=== PATIENT | male | born 1950 | race Two or more races ===

== ENCOUNTER 2017-07-20 07:32 | Day surgery (SDC) | payer OTHER ==
[~2017-07-20] VITALS: Ht 177.8 cm; Wt 115.5 kg
[~2017-07-20 07:32] MED LIST: ATOR40TA PO; CYAN1000I PO; ELIQUIS5 MG PO; FISH OIL 1,2001 EAC1 PO; LEVO-T150 MCG PO; METO25 PO; OSTERA TABLET1 EACH PO; Omeprazole20 M1; SYNTHROID175 MCG PO; Toprol Xl25 MG PO
== END 2017-07-20 23:02 | disposition home or self-care (01) ==
LOC: MHTC 07:32
PROC: 0JH602Z Insertion of Monitoring Device into Chest Subcutaneous Tissue and Fascia, Open Approach (ICD-10-PCS; principal; 2017-07-20)
DX: I48.3 Typical atrial flutter (principal); I10 Essential (primary) hypertension; E78.5 Hyperlipidemia, unspecified; E03.9 Hypothyroidism, unspecified; E66.01 Morbid (severe) obesity due to excess calories; Z87.891 Personal history of nicotine dependence
CPT/HCPCS: 33282; C1764

== ENCOUNTER 2021-04-24 09:16 | Day surgery (SDC) | payer OTHER ==
[~2021-04-24] VITALS: Ht 175.3 cm; Wt 113.2 kg
[2021-04-24] MEDS ORDERED: ASPI81CH PO (09:38)
[2021-04-24] MEDS ORDERED: Cabergoline0.5 MG PO (09:38)
[2021-04-24] MEDS ORDERED: METO50 PO (09:39)
--- NOTE | 2021-04-24 10:00 | NUR ---
Ambulatory in Day Surgery History, Chart, Medications and Allergies reviewed before start of procedure.Pre-Op teaching done. Pt verbalizes understanding.
--- NOTE | 2021-04-24 11:14 | NUR ---
04/24/21 1114 Billie Wheeler History, Chart, Medications and Allergies reviewed before start of procedure. Patient confirms NPO status and agrees with scheduled surgery. 3-LEAD EKG REVIEWED WITH PHYSICIAN PRIOR TO START OF PROCEDURE. MONITOR INTACT WITH CONTINUOUS PULSE OXIMETRY AND INTERMITTENT BP. PATIENT DETERMINED TO BE ASA APPROPRIATE FOR PROPOFOL SEDATION PRIOR TO START OF PROCEDURE BY DR. ABARCA
--- NOTE | 2021-04-24 11:59 | NUR ---
Patient up to Ambulate independently. Gait steady. Discharge instructions reviewed with patient. Patient verbalizes understanding. Copy given to patient to take home. Discharged via wheelchair to private car for ride home.
== END 2021-04-24 22:51 | disposition home or self-care (01) ==
LOC: ORSCMMR 09:16 → ORD 10:45 → ORSCMMR 10:45
DX: Z12.11 Encounter for screening for malignant neoplasm of colon (principal); D12.2 Benign neoplasm of ascending colon; K63.5 Polyp of colon; E78.5 Hyperlipidemia, unspecified; E03.9 Hypothyroidism, unspecified; E66.9 Obesity, unspecified; Z68.38 Body mass index [BMI] 38.0-38.9, adult; Z79.82 Long term (current) use of aspirin; Z79.899 Other long term (current) drug therapy
CPT/HCPCS: 88305; J2704; J7120

== ENCOUNTER 2021-07-10 06:42 | Day surgery (SDC) | payer OTHER ==
[~2021-07-10 06:42] MED LIST changes: +ASPI81CH PO; +Cabergoline0.5 MG PO; +METO50 PO
== END 2021-07-11 12:00 | disposition home or self-care (01) ==
LOC: MHTC 06:42
DX: Z45.09 Encounter for adjustment and management of other cardiac device (principal); I48.0 Paroxysmal atrial fibrillation; R55 Syncope and collapse; I10 Essential (primary) hypertension; E78.5 Hyperlipidemia, unspecified; E03.9 Hypothyroidism, unspecified; E66.9 Obesity, unspecified; I77.819 Aortic ectasia, unspecified site; D35.2 Benign neoplasm of pituitary gland; E55.9 Vitamin D deficiency, unspecified; K21.9 Gastro-esophageal reflux disease without esophagitis; G47.33 Obstructive sleep apnea (adult) (pediatric); Z86.79 Personal history of other diseases of the circulatory system; Z79.82 Long term (current) use of aspirin; Z87.891 Personal history of nicotine dependence; Z68.37 Body mass index [BMI] 37.0-37.9, adult
CPT/HCPCS: 33286

== ENCOUNTER 2022-04-30 08:39 | Day surgery (SDC) | payer OTHER ==
[~2022-04-30] VITALS: Ht 177.8 cm; Wt 117.8 kg
== END 2022-04-30 10:31 | disposition home or self-care (01) ==
LOC: ORSCSDS 08:39
PROVIDERS: Ophthalmology
PROC: 08DJ3ZZ Extraction of Right Lens, Percutaneous Approach (ICD-10-PCS; principal; 2022-04-30 10:00)
DX: H25.11 Age-related nuclear cataract, right eye (principal); Z96.1 Presence of intraocular lens; I10 Essential (primary) hypertension; I65.29 Occlusion and stenosis of unspecified carotid artery; I48.0 Paroxysmal atrial fibrillation; Z87.891 Personal history of nicotine dependence; G47.33 Obstructive sleep apnea (adult) (pediatric); E66.9 Obesity, unspecified; Z68.37 Body mass index [BMI] 37.0-37.9, adult; Z79.899 Other long term (current) drug therapy
CPT/HCPCS: J2001; J2250; J3010; J3301; J7040; V2632

== ENCOUNTER 2024-11-16 06:33 | Emergency (ER) | payer MEDICARE ==
[~2024-11-16] VITALS: Ht 177.8 cm; Wt 86.2 kg
[2024-11-16] MEDS ORDERED: NS 500 ML IV SCH (06:50)
[2024-11-16] MEDS ORDERED: Morphine Sulfate 4 MG/1 ML Injection IV ONE (06:50)
[2024-11-16] MEDS ORDERED: Ondansetron HCl 2 MG / ML 2ML Vial ONE (06:54)
[2024-11-16 06:58] LABS: BASOPHILS ABSOLUTE AUTO 0.02 K/mm3 (0.00-0.23); BASOPHILS PERCENT AUTO 0 % (0-2); EOSINOPHILS ABSOLUTE AUTO 0.01 K/mm3 (0.00-0.68); EOSINOPHILS PERCENT AUTO 0 % (0-6); Hematocrit 43.9 % (37.0-53.0); Hemoglobin 15.7 g/dL (13.5-17.5); IMMATURE GRAN ABSOLUTE AUTO 0.06 K/mm3 (0.00-0.10); IMMATURE GRAN PERCENT AUTO 1 % (0-1); LYMPHOCYTES ABSOLUTE AUTO 0.29 K/mm3 (0.84-5.20); LYMPHOCYTES PERCENT AUTO 3 % (21-46); MONOCYTES ABSOLUTE AUTO 0.06 K/mm3 (0.16-1.47); MONOCYTES PERCENT AUTO 1 % (4-13); Mean Corpuscular HGB 35.4 pg (26.0-34.0); Mean Corpuscular HGB Conc 35.8 g/dL (31.5-36.5); Mean Corpuscular Volume 99 fL (80-100); Mean Platelet Volume 9.7 fL (9.1-12.4); NEUTROPHILS ABSOLUTE AUTO 9.94 K/mm3 (1.96-9.15); NEUTROPHILS PERCENT AUTO 96 % (41-73); Platelet Count 157 K/mm3 (150-400); RDW Coefficient Variation 11.9 % (11.7-14.2); RDW Standard Deviation 43.6 fL (35.1-46.3); Red Blood Cell Count 4.44 M/mm3 (4.30-5.90); White Blood Cell Count 10.38 K/mm3 (4.00-11.30)
[2024-11-16] MEDS ORDERED: Ondansetron HCl 2 MG / ML 2ML Vial IV ONE (07:00)
[2024-11-16 07:15] LABS: Albumin, Blood 3.6 g/dL (3.4-5.0); Bilirubin, Total 2.1 mg/dL (0.1-1.0); Bun/Creatinine Ratio 13.9 (12.0-20.0); Calcium, Blood 9.1 mg/dL (8.5-10.1); Creatinine, Blood 1.08 mg/dL (0.60-1.20); Globulin, Blood 3.7 g/dL (2.2-4.0); Magnesium, Blood 1.8 mg/dL (1.6-2.4); Potassium, Blood 3.5 mmol/L (3.5-5.5); Total Protein, Blood 7.3 g/dL (6.4-8.2)
[2024-11-16] MEDS ORDERED: Ketorolac Tromethamine 30mg Vial IV ONE (08:15)
[2024-11-16 08:23] LABS: Source, Urine Foley catheter
[2024-11-16 08:28] LABS: Appearance, Urine Hazy (Clear); Bilirubin, Urine Neg (Neg); Blood, Urine 5+ (Neg); Color, Urine Amber (P-Yellow); Glucose Qualitative, Urine Neg (Neg); Ketones, Urine 2+ (Neg); Leukocyte Esterase, Urine 3+ (Neg); Nitrite, Urine Neg (Neg); Protein, Urine 3+ (Neg); Urobilinogen, Urine 1+ (Normal)
[2024-11-16 08:34] LABS: Red Blood Cells, Urine 50-100 /hpf (0-2); White Blood Cells, Urine 50-100 /hpf (0-5)
[2024-11-16 08:35] LABS: Amorphous Light (0-Heavy); Bacteria Many /hpf; Squamous Epithelial Cells Not Seen /hpf (Few)
[2024-11-16 08:36] LABS: Transitional Epithelial Cells Rare /hpf (0-Rare)
[2024-11-16] MEDS ORDERED: CefTRIAXone Sodium 1,000 MG in NS 50 ML IV ONE (08:40)
[2024-11-16] MEDS ORDERED: NS 1,000 ML IV SCH (08:45)
[2024-11-16] MEDS ORDERED: CEFP200 PO (11:38)
[2024-11-16 12:00] VITALS: BP 101/59
== END 2024-11-16 12:17 | disposition home or self-care (01) ==
LOC: ER 06:33
PROVIDERS: Student in an Organized Health Care Education/Training Program
DX: N30.00 Acute cystitis without hematuria (principal); E86.0 Dehydration; N40.1 Benign prostatic hyperplasia with lower urinary tract symptoms; R33.8 Other retention of urine; K21.9 Gastro-esophageal reflux disease without esophagitis; E78.5 Hyperlipidemia, unspecified; I48.92 Unspecified atrial flutter; Z87.891 Personal history of nicotine dependence; Z79.899 Other long term (current) drug therapy; Z79.890 Hormone replacement therapy; Z79.82 Long term (current) use of aspirin
CPT/HCPCS: 51798; 74177; 80053; 81001; 83605; 83690; 83735; 85025; 87077; 87086; 87186; 93005; 93010; 96365-59; 96375; 99284-25; J0696; J1885; J2270; J2405; J7030; Q9967